=== PATIENT | female | born 1970 | race Caucasian/White ===

== ENCOUNTER → 2017-01-24 | Outpatient (CLI) | payer MEDICARE ==
[~2017-01-24] MED LIST: FLEXERIL10 MG PO; LISINOPRIL 5MG T5 MG NG; LODINE400 MG PO; MOBIC7.5 MG PO; PERCOGESIC1 TAB PO; XANAX1 M1 PO
--- NOTE | 2017-01-24 15:11 | RADIOLOGY REPORT PS360 ---
CARDIOLITE SPECT MYOCARDIAL PERFUSION SCAN, REST AND STRESS: EXERCISE STRESS [facility] REVIEW QGS EF AND WALL MOTION EVALUATION: QPS - PERFUSION EVALUATION HISTORY: chest pain DOSE: 10.76 mCi technetium 99m mibi intravenously at rest followed by 32.1 mCi technetium 99m mibi following the intravenous ministration of 0.4 mg of Lexiscan. Resting blood pressure is 175/93. Stress blood pressure 146/78. FINDINGS: Ejection fraction is calculated to be 69%. Stress images reveal decreased activity in the mid anterior apical and septal wall. Rest images reveal slightly improved uptake. IMPRESSION: Reversible ischemia in the mid anterior apical and septal wall. Normal ejection fraction normal wall motion. This is an abnormal high risk stress test
--- NOTE | 2017-01-24 15:11 | RADIOLOGY REPORT PS360 ---
CARDIOLITE SPECT MYOCARDIAL PERFUSION SCAN, REST AND STRESS: EXERCISE STRESS [facility] REVIEW QGS EF AND WALL MOTION EVALUATION: QPS - PERFUSION EVALUATION HISTORY: chest pain DOSE: 10.76 mCi technetium 99m mibi intravenously at rest followed by 32.1 mCi technetium 99m mibi following the intravenous ministration of 0.4 mg of Lexiscan. Resting blood pressure is 175/93. Stress blood pressure 146/78. FINDINGS: Ejection fraction is calculated to be 69%. Stress images reveal decreased activity in the mid anterior apical and septal wall. Rest images reveal slightly improved uptake. IMPRESSION: Reversible ischemia in the mid anterior apical and septal wall. Normal ejection fraction normal wall motion. This is an abnormal high risk stress test
--- NOTE | 2017-01-24 19:30 | RADIOLOGY REPORT PS360 ---
PROCEDURE: 2-D M-mode and color Doppler study INDICATIONS FOR THE TEST: Chest pain COPD Heart Murmur Tobacco Smoking Palpitations Fatigue Syncope Edema Hypertension Diabetes Mellitus Rheumatic Fever SOB LU Obesity Hyperlipidemia Family History HD Additional History PACEMAKER,H/O POTS PATIENT INFORMATION HEIGHT: 68 WEIGHT:156 GENDER: Female B/P:175/93 2-D/M-MODE INTERPRETATION: 2-D MEASUREMENTS OBSERVED VALUES IN CMS Right Ventricular Dimension (RVDd) 2.2 Interventricular Septum (Thickness)(IVsd) .9 Left Ventricular Internal Dimensions(LVIDd) 5.4 Left Ventricular Posterior Wall (Thickness)(LVPWd) .8 Aortic Root 3.2 Aortic Cusp Separation 1.9 Left Atrial Dimensions (LAD) 2.8 2D 1. Left atrium is qualitatively mildly enlarged, left ventricle is normal size, there is no concentric left ventricular hypertrophy, visually estimated ejection fraction approximately 50%, there is abnormal septal motion. 2. The right atrium and right ventricle are normal size and contractility, there is a pacemaker lead seen in the right atrium and right ventricle. 3. The aortic valve is minimally thickened and fibrosed. 4. The mitral and tricuspid valves are grossly normal. 5. The pulmonic valve is poorly visualized. 6. There is small circumferential pericardial effusion noted. DOPPLER INTERROGATION: Doppler interrogation of the aortic, mitral and tricuspid valvular presence of mild mitral and tricuspid regurgitation, calculated right ventricular systolic pressure is 36 mmHg, grade 1 diastolic dysfunction seen without tissue Doppler evidence of raised left atrial pressure. CONCLUSION: 1. Mildly enlarged left atrium, normal left ventricular size, visually estimated ejection fraction 50%, there is abnormal septal motion. Grade 1 diastolic dysfunction seen without tissue Doppler evidence of raised left atrial pressure. 2. Mild mitral and tricuspid regurgitation, calculated right ventricular systolic pressure 36 mmHg. 3. Small circumferential pericardial effusion noted.
== END ==
LOC: RAD 07:00
DX: R07.9 Chest pain, unspecified (principal); R06.09 Other forms of dyspnea; I10 Essential (primary) hypertension; Z95.0 Presence of cardiac pacemaker
CPT/HCPCS: A9502; J2785